=== PATIENT | female | born 2005 | race African-American/Black ===

== ENCOUNTER 2025-01-10 08:57 | Emergency (ER) | payer OTHER ==
[~2025-01-10] VITALS: Ht 170.2 cm; Wt 64.5 kg
[2025-01-10] MEDS ORDERED: IBUP200T46 PO (09:18)
[2025-01-10 10:52] LABS: BASO # 0.0 10^3/uL (0.0-0.2); BASO % 0.6 % (0.0-1.0); EOS # 0.1 10^3/uL (0.0-0.5); EOS % 1.3 % (0.0-3.0); LYMPH # 1.1 10^3/uL (1.5-5.0); LYMPH % 20.8 % (24.0-44.0); MONO # 0.5 10^3/uL (0.0-0.8); MONO % 9.9 % (2.0-8.0); NEUTROPHILS # 3.7 10^3/uL (1.5-8.5); NEUTROPHILS % 67.0 % (36.0-66.0); PLATELET COUNT, AUTOMATED 254 10^3/uL (150-450)
[2025-01-10 11:04] LABS: KETONE, URINE AUTO RFX NEGATIVE (NEGATIVE); LEUKOCYTE ESTERASE UR AUTO RFX NEGATIVE (NEGATIVE); MUCUS, URINE RFX SMALL (NEGATIVE); NITRITE, URINE AUTO RFX NEGATIVE (NEGATIVE); RBC, URINE AUTO RFX 62 /HPF (0-3); SQUAM EPITHELIAL CELL UR AURFX 2 /HPF (0-6); WBC, URINE AUTO RFX 1 /HPF (0-3)
[2025-01-10 11:20] VITALS: TEMP 97.6
[2025-01-10 11:20] LABS: ALT/SGPT 18 U/L (7.0-40); AST/SGOT 18 U/L (<34); CALCIUM LEVEL 8.7 MG/DL (8.5-10.1); CARBON DIOXIDE LEVEL 25 MMOL/L (20-31); CHLORIDE LEVEL 109 MMOL/L (98-107); CREATININE FOR GFR 0.67 MG/DL (0.55-1.30); GLOMERULAR FILTRATION RATE > 90.0 (>60); POTASSIUM SERUM 4.1 MMOL/L (3.5-5.1); SODIUM LEVEL 141 MMOL/L (136-145)
[2025-01-10 11:21] LABS: HCG, SERUM QUALITATIVE NEGATIVE (NEGATIVE)
[2025-01-10 11:47] LABS: HIV 1&2 SCREEN NEGATIVE (NEGATIVE)
[2025-01-10 12:34] LABS: Trichomonas vaginalis (AMP) NOT DETECTED (NEGATIVE)
[2025-01-10 12:58] LABS: GC DNA AMPLIFICATION NEGATIVE (NEGATIVE)
[2025-01-10 13:15] VITALS: BP 101/54; O2SAT 99
== END 2025-01-10 13:29 | disposition home or self-care (01) ==
LOC: M ED 08:57
DX: N93.8 Other specified abnormal uterine and vaginal bleeding (principal); N83.12 Corpus luteum cyst of left ovary